=== PATIENT | female | born 1995 | race Caucasian/White ===

== ENCOUNTER 2024-05-03 16:23 | Emergency (ER) | payer BC, SELFPAY ==
[2024-05-03 16:27] VITALS: BP 151/89; BMI 23.2
[2024-05-03 16:50] LABS: % Basophils 0.5 % (0-2); % Eosinophils 1.1 % (0-6); % Immature Granulocytes 0.3 % (0-0.5); % Lymphocytes 26.9 % (20.5-51.1); % Monocytes 7.4 % (1.7-9.3); % Neutrophils 63.8 % (42.2-75.2); Absolute Eosinophils 0.1 10^3/uL (0-0.7); Absolute Lymphocytes 1.7 10^3/uL (1.2-3.4); Absolute Monocytes 0.5 10^3/uL (0.1-0.6); Hematocrit 42.5 % (37.0-47.0); Hemoglobin 14.6 g/dL (12.0-16.0); Mean Corp Hgb Conc. 34.4 g/dL (33.0-37.0); Mean Corpuscular Hgb 29.4 pg (27.0-31.0); Mean Corpuscular Volume 85.7 fL (81.0-99.0); Mean Platelet Volume 10.4 fL (7.4-10.4); Nucleated Red Blood Cells % 0 %; Platelet Count 279 10^3/uL (130-400); Red Blood Cell Count 4.96 10^6/uL (4.20-5.40); White Blood Cell Count 6.2 10^3/uL (4.8-10.8)
[2024-05-03 17:10] LABS: ALT (SGPT) 18 U/L (0-35); AST (SGOT) 26 U/L (14-36); Albumin 5.3 g/dl (3.5-5.0); Alkaline Phosphatase 86 U/L (38-126); Blood Urea Nitrogen 9 mg/dl (7-17); Calcium 10.4 mg/dl (8.4-10.2); Carbon Dioxide 23 mmol/L (22-30); Chloride 104 mmol/L (98-107); Estimated Creatinine Clearance 118 ml/min; Glucose 98 mg/dl (70-99); Lipase 138 U/L (23-300); Potassium 4.6 mmol/L (3.5-5.1); Sodium 138 mmol/L (135-145); Total Bilirubin 0.9 mg/dl (0.2-1.3); Total Protein 7.8 g/dl (6.3-8.2); eGFR > 60.00
[2024-05-03 18:30] VITALS: BP 127/73
[2024-05-03 19:00] VITALS: BP 107/59
--- NOTE | 2024-05-03 19:48 | ED.GENMED ---
History of Present Illness
General
Chief Complaint: Abdominal Pain
Source: patient
Time Seen by Provider: 05/03/24 19:39
History of Present Illness
History of Present Illness:
[id number] female presents to the emergency room complaining of abdominal pain. Pain has been present for the past 3 weeks. She states the pain is located centrally. Nothing seems to make it better or worse. The pain has been persistent for
about 3 weeks. She notes some sense of paresthesias in her upper lateral thighs. No vomiting. No diarrhea or constipation. Currently having her menstrual period which she felt was a few days late. No urinary symptoms.
Phy Exam
Physical Exam
Physical Exam:
General: Awake, Alert, Oriented X3. No acute distress.
Vitals: unremarkable
Head: Atraumatic
Eyes: Pupils equal, EOMI
Throat: Airway intact, no exudates
Neck: Trachea midline
Lungs: Clear and equal b/l
Heart: Regular rate, no murmurs
Abd: Soft, mild, diffuse abdominal discomfort to palpation, no rebound, no guarding, no rigidity, No pulsatile mass
Neuro: Nonfocal
Skin: Warm, dry, no rash
Extremities: pulses equal b/l, no edema
Course
Orders/Labs/Results
Orders:
Orders
05/03/24 16:43
Complete Blood Count/With Diff Urgent
Comprehensive Metabolic Panel Urgent
HCG, Serum Qualitative Screen Urgent
Comment: ADD ON
Lipase Urgent
05/03/24 18:28
Urinalysis Reflex To Culture Urgent
Date Specimen was Collected: 05/03/24
Time Specimen was Collected: 18:27
Urine Microscopic Reflex Cult Urgent
05/03/24 19:47
Add On- LAB Urgent
Tests Added?: qualitative hcg
0.9% Sodium Chloride 500 ml [Nss] 500 ml IV BOLUS
Ketorolac [Toradol] 15 mg IV NOW STA
05/03/24 19:48
CT Abd/pel W Iv And Oral Contr Urgent
Comment:
Reason For Exam: diffuse abdominal pain
Iohexol [Omnipaque] See Protocol PO NOW STA
Abnormal Lab Results
05/03/24 05/03/24
16:43 18:28
Calcium 10.4 H mg/dl
(8.4-10.2)
Albumin 5.3 H g/dl
(3.5-5.0)
Urine Ketones Trace A
(Negative)
Ur Occult Blood Reflex 3+ A
(Negative)
Urine Bacteria (Reflex) Few A
(Negative)
05/03/24 16:43
05/03/24 16:43
Vital Signs
Initial and Last Documented VS:
Initial Vital Signs
Temp Pulse Resp BP Pulse Ox
98.4 F 111 20 151/89 100
05/03/24 16:27 05/03/24 16:27 05/03/24 16:27 05/03/24 16:27 05/03/24 16:27
Last Documented Vital Signs
Temp Pulse Resp BP Pulse Ox
98.4 F 76 16 115/69 99
05/03/24 16:27 05/04/24 00:00 05/04/24 00:00 05/04/24 00:00 05/04/24 00:00
MDM/Problems Addressed
Differential Diagnosis Includes:
Ruptured ovarian cyst, appendicitis, diverticulitis, inflammatory bowel disease, endometriosis
MDM/Problems Addressed:
Patient presents with abdominal pain that has been present for the past few weeks. Abdominal exam is fairly benign. test is negative. Labs are unremarkable. Imaging shows no acute intra-abdominal pathology. There are 2 cysts on the
left ovary. Unclear what the source of the patient's discomfort is. There is no evidence for a surgical emergency or other unstable process. Recommend she follow with [facility] as an outpatient.
*Radiology
Radiology exam reviewed: radiology read reviewed
*Pulse Oximetry
Patient hypoxic: no
*Critical Care Note
Total Time (30-74mins, 75-104mins- exclusive of procedures): Not Applicable
ED Attending Note
-
Portions of this chart may have been created with voice recognition software.� Occasional wrong word or��sound alike� substitutions may have occurred due to the inherent limitations of voice recognition software.
Discharge Plan
Departure
Patient Disposition: Home (Routine Discharge)
Date of Disposition: 05/03/24
Time of Disposition: 23:44
Patient with high blood pressure during this ER visit?: No
Condition: Good
Discharge Problem:
Abdominal pain, Ovarian cyst
Instructions: Ovarian Cyst (DC), Abdominal Pain
Prescriptions:
No Action
No Current Medications
0
Referrals:
Vandana Lama, DO [Active] -
NONE,* [Family Provider] -
Activity Restrictions/Additional Instructions:
Your blood work here in the emergency room fortunately is normal. You had a CT scan performed which did not show any evidence of a serious process but we did identify a ovarian cyst on the left. I believe the neck step would be for you to
follow-up with a ironworker apprentice. I given you contact information for one of our ironworker apprentice. You should call their office to schedule an appointment. Return to the emergency room if you develop a fever or feel like you are getting significantly
worse.
Interventions
Interventions:
*Risk Screen - Suicide Last Done: 05/03/24 16:27
*General Assessment Last Done: 05/04/24 00:09
*Neglect/Abuse Screening Last Done: 05/03/24 16:27
ED- Fall Risk Assessment Last Done: 05/03/24 16:27
*ED COVID-19 Vaccine History Last Done: 05/03/24 20:16
*Nursing Disposition Last Done: 05/04/24 00:09
GK-Xfhklw-Zqvdjmmwvr Assessment Last Done: 05/03/24 18:20
Discharge Date and Time
Discharge Date/Time: 05/04/24 00:09
Print Language: MALAGASY
[2024-05-03] MEDS: OMNIPAQUE 50 ML PO (19:54)
[2024-05-03] MEDS: NSS 500 IV (20:02)
[2024-05-03 20:18] LABS: Urine Albumin Negative (Neg - Trace); Urine Bilirubin Negative (Negative); Urine Character Clear (Clear); Urine Color Yellow; Urine Glucose Negative (Negative); Urine Ketone Trace (Negative); Urine Leukocyte Negative (Negative); Urine Nitrite Negative (Negative); Urine Occult Blood 3+ (Negative); Urine Specific Gravity 1.005 (<1.030); Urine Urobilinogen Negative (Neg - 1+)
[2024-05-03 20:29] LABS: Urine Bacteria Few (Negative); Urine Red Blood Cell 0-2 /HPF (0-2); Urine White Cell 0-2 /HPF (0-5)
[2024-05-03 20:30] LABS: HCG, Serum Qualitative Screen Negative
[2024-05-03 21:30] VITALS: BP 113/78
[2024-05-04] VITALS: BP 115/69
== END 2024-05-04 00:09 | disposition home or self-care (01) ==
LOC: EMR 16:23
PROVIDERS: Emergency Medicine; EMERGENCY PHYSICIAN Emergency Medicine
DX: R10.84 Generalized abdominal pain (principal); R20.2 Paresthesia of skin; N83.202 Unspecified ovarian cyst, left side
CPT/HCPCS: 99285; 96360; 74177; 80053; 81003; 81015; 83690; 84703; 85025; Q9967